=== PATIENT | male | born 1990 | race Caucasian/White ===

== ENCOUNTER 2019-12-07 19:14 | Emergency (ER) | payer OTHER ==
[~2019-12-07] VITALS: Ht 177.8 cm; Wt 81.6 kg
[2019-12-07 19:18] VITALS: Ht 177.8 cm; Wt 81.6 kg
[2019-12-07 21:27] VITALS: BP 121/74
== END 2019-12-07 21:27 | disposition home or self-care (01) ==
LOC: ED 19:14
DX: N39.0 Urinary tract infection, site not specified (principal)
CPT/HCPCS: 87491; 87591; J0696; Q0092